=== PATIENT | male | born 1955 | race Two or more races ===

== ENCOUNTER 2025-06-12 10:42 | Outpatient (CLI) | payer OTHER ==
[2025-06-12 11:26] LABS: Hematocrit 41.4 % (41.0-53.0); Hemoglobin 14.2 g/dL (13.5-17.5); Mean Corpuscular Hemoglobin 31.0 pg (28.0-32.0); Mean Corpuscular Volume 90.5 fL (80.0-100.0); Nucleated Red Blood Cells % 0.0 %
[2025-06-12 11:37] LABS: INR 1.04 (0.9-1.15); Partial Thromboplastin Time 34.6 SEC (24.5-34.5); Prothrombin Time 11.0 sec (9.3-11.8)
== END 2025-06-12 17:00 | disposition home or self-care (01) ==
LOC: LAB 10:42
PROVIDERS: ATTEND Internal Medicine Hematology & Oncology
DX: C84.41 Peripheral T-cell lymphoma, not elsewhere classified, lymph nodes of head, face, and neck (principal); R59.1 Generalized enlarged lymph nodes
CPT/HCPCS: 36415; 85025; 85610; 85730

== ENCOUNTER 2025-07-13 06:22 | Outpatient (CLI) | payer OTHER ==
[2025-07-13 07:41] LABS: Hematocrit 40.1 % (41.0-53.0); Hemoglobin 13.8 g/dL (13.5-17.5); Mean Corpuscular Hemoglobin 32.0 pg (28.0-32.0); Mean Corpuscular Volume 92.8 fL (80.0-100.0)
[2025-07-13 07:58] LABS: Total Cells Counted 100.0 (100)
[2025-07-13 08:13] LABS: Alanine Aminotransferase 17 U/L (7-40); Albumin 4.2 g/dL (3.2-4.8); Anion Gap 9 (5-15); BUN/Creatinine Ratio 12.5 (10.0-20.0); Blood Urea Nitrogen 12 mg/dL (9-23); Calcium 9.9 mg/dL (8.7-10.4); Carbon Dioxide 30 mmol/L (20-31); Chloride 103 mmol/L (98-107); Glucose 93 mg/dL (74-106); Potassium 4.3 mmol/L (3.5-5.1); Sodium 142 mmol/L (136-145); Total Protein 7.9 g/dL (5.7-8.2)
[2025-07-13 08:33] LABS: Bilirubin, Total 0.5 mg/dL (0.2-1.0)
[2025-07-13 08:34] LABS: Alkaline Phosphatase 118 U/L (46-116)
== END 2025-07-13 17:00 | disposition home or self-care (01) ==
LOC: LAB 06:22
PROVIDERS: ATTEND Internal Medicine Hematology & Oncology
DX: C84.41 Peripheral T-cell lymphoma, not elsewhere classified, lymph nodes of head, face, and neck (principal); D69.6 Thrombocytopenia, unspecified; J84.10 Pulmonary fibrosis, unspecified; R59.1 Generalized enlarged lymph nodes
CPT/HCPCS: 36415; 80053; 82232; 83615; 85007; 85027

== ENCOUNTER 2025-07-21 06:20 | Outpatient (CLI) | payer OTHER ==
[2025-07-21 08:03] LABS: Alanine Aminotransferase 14 U/L (7-40); Albumin 4.5 g/dL (3.2-4.8); Anion Gap 9 (5-15); BUN/Creatinine Ratio 10.0 (10.0-20.0); Bilirubin, Total 0.6 mg/dL (0.2-1.0); Blood Urea Nitrogen 9 mg/dL (9-23); Calcium 10.4 mg/dL (8.7-10.4); Chloride 101 mmol/L (98-107); Glucose 88 mg/dL (74-106); Potassium 4.1 mmol/L (3.5-5.1); Sodium 141 mmol/L (136-145)
[2025-07-21 08:06] LABS: Alkaline Phosphatase 124 U/L (46-116); Carbon Dioxide 31 mmol/L (20-31); Total Protein 8.3 g/dL (5.7-8.2)
[2025-07-22 11:07] LABS: Sjogren's Anti-SS-A Antibody <0.2 AI (0.0-0.9); Sjogren's Anti-SS-B Antibody <0.2 AI (0.0-0.9)
== END 2025-07-24 17:00 | disposition home or self-care (01) ==
LOC: LAB 06:20
PROVIDERS: ATTEND Internal Medicine
DX: C84.41 Peripheral T-cell lymphoma, not elsewhere classified, lymph nodes of head, face, and neck (principal)
CPT/HCPCS: 36415; 80053; 83615; 86235; 86431; 86644; 86645; 86780